=== PATIENT | male | born 1955 | race Caucasian/White ===

== ENCOUNTER 2024-04-06 12:18 | Emergency (ER) | payer MEDICARE, OTHER ==
--- NOTE | 2024-04-06 13:09 | ED ---
Trauma HPI - General Chief Complaint: Trauma Stated Complaint: R shoulder injury Time Seen by Provider: 04/06/24 13:02 Source: patient, RN notes reviewed, old records reviewed Mode of arrival: EMS Limitations: no limitations - History of Present Illness Initial Comments: This is a 68-year-old male who presents today for evaluation. Patient presents today for evaluation in regards to traumatic injury. Patient had a traumatic body went over him while doing some concrete work. Patient has severe pain of the right ankle right knee right shoulder. No loss of consciousness no other complaints MD Complaint: injury, pain -: days(s) Loss of Consciousness: yes Location: head, face Location - Extremities: Right: Thigh, Knee Severity scale (1-10): 7 Consistency: constant Associated Symptoms: denies other symptoms Treatments Prior to Arrival: other (0) - Related Data Previous Rx's Medication Instructions Recorded Cephalexin [Keflex] 500 mg PO Q6HR #40 cap 04/12/24 Allergies Allergy/AdvReac Type Severity Reaction Status Date / Time No Known Allergies Allergy Verified 04/12/24 12:19 Review of Systems ROS Statement: Those systems with pertinent positive or pertinent negative responses have been documented in the HPI. ROS Other: All systems not noted in ROS Statement are negative. Past Medical History Past Medical History: Deep Vein Thrombosis (DVT), Pulmonary Embolus (PE) History of Any Multi-Drug Resistant Organisms: None Reported Additional Past Surgical History / Comment(s): Atherectomy Past Psychological History: No Psychological Hx Reported Smoking Status: Former smoker Past Alcohol Use History: Occasional Past Drug Use History: None Reported General Exam General appearance: alert, in no apparent distress, anxious Head exam: Present: atraumatic, normocephalic, normal inspection Eye exam: Present: normal appearance, PERRL, EOMI. Absent: scleral icterus, conjunctival injection, periorbital swelling ENT exam: Present: normal exam, mucous membranes moist Neck exam: Present: normal inspection. Absent: tenderness, meningismus, lymphadenopathy Respiratory exam: Present: normal lung sounds bilaterally. Absent: respiratory distress, wheezes, rales, rhonchi, stridor Cardiovascular Exam: Present: regular rate, normal rhythm, normal heart sounds. Absent: systolic murmur, diastolic murmur, rubs, gallop, clicks GI/Abdominal exam: Present: soft, normal bowel sounds. Absent: distended, tenderness, guarding, rebound, rigid Extremities exam: Present: normal inspection, full ROM, normal capillary refill. Absent: tenderness, pedal edema, joint swelling, calf tenderness Back exam: Present: normal inspection Neurological exam: Present: alert, oriented X3, CN II-XII intact Psychiatric exam: Present: normal affect, normal mood Skin exam: Present: warm, dry, intact, normal color. 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 sent in by a medical professional or institution (, PA, MARKSMANSH[employer] INSTRUCTOR, urgent care, hospital, or longterm...) When possible be specific @ -no Did you speak to anyone other than the patient for history (EMS, parent, family, police, friend...)? What history was obtained from this source @ -no Did you review nursing and triage notes (agree or disagree)? Why? @ -agree Are old charts reviewed (outside hosp., previous admission, EMS record, old EKG, old radiological studies, urgent care reports/EKG's, longterm records)? Report findings @ -yes Differential Diagnosis (chest pain, altered mental status, abdominal pain women, abdominal pain men, vaginal bleeding, weakness, fever, dyspnea, syncope, headache, dizziness, GI bleed, back pain, seizure, CVA, palpatations, mental health, musculoskeletal)? @ -prior EKG interpreted by me (3pts min.). @ -no X-rays interpreted by me (1pt min.). @ -yes negative for acute disease CT interpreted by me (1pt min.). @ -no U/S interpreted by me (1pt. min.). @ -no What testing was considered but not performed or refused? (CT, X-rays, U/S, labs)? Why? @ -none What meds were considered but not given or refused? Why? @ -none Did you discuss the management of the patient with other professionals (professionals i.e. , PA, MARKSMANSHIP INSTRUCTOR, lab, RT, psych nurse, social media specialist, school commissioner, teacher, hazard mitigation officer, trimming caser)? Give summary @ -no Was smoking cessation discussed for >3mins.? @ -no Was critical care preformed (if so, how long)? @ -no Were there social determinants of health that impacted care today? How? (Homelessness, low income, unemployed, alcoholism, drug addiction, transportation, low edu. Level, literacy, decrease access to med. care, assisted, rehab)? @ -none Was there de-escalation of care discussed even if they declined (Discuss DNR or withdrawal of care, Hospice)? DNR status @ -no What co-morbidities impacted this encounter? (DM, HTN, Smoking, COPD, CAD, Cancer, CVA, ARF, Chemo, Hep., AIDS, mental health diagnosis, sleep apnea, morbid obesity)? @ -none Was patient admitted / discharged? Hospital course, mention meds given and route, prescriptions, significant lab abnormalities, going to OR and other pertinent info. @ - 68 male to ER for evaluation of a fall with shoulder pain leg pain back pain with no traumatic injury noted. Patient can be discharged home Discharge Undiagnosed new problem with uncertain prognosis? @ -no Drug Therapy requiring intensive monitoring for toxicity (Heparin, Nitro, Insulin, Cardizem)? @ -no Were any procedures done? @ -no Diagnosis/symptom? @ -Shoulder contusion back contusion ankle pain Acute, or Chronic, or Acute on Chronic? @ -Acute Uncomplicated (without systemic symptoms) or Complicated (systemic symptoms)? @ -Complicated Side effects of treatment? @ -no Exacerbation, Progression, or Severe Exacerbation? @ -exacerbation Poses a threat to life or bodily function? How? (Chest pain, [place], [place], pneumonia, PE, COPD, DKA, ARF, appy, cholecystitis, CVA, Diverticulitis, Homicidal, Suicidal, threat to staff... and all critical care pts) @ -no Medical Decision Making - Medical Decision Making 68 male to ER for evaluation of a fall with shoulder pain leg pain back pain with no traumatic injury noted. Patient can be discharged home - Radiology Data Radiology results: report reviewed (X-ray ankle chest shoulder pelvis negative for traumatic injury), image reviewed Disposition Clinical Impression: Contusion of right leg, Contusion of right shoulder, Fall Disposition: HOME SELF-CARE Instructions (If sedation given, give patient instructions): Shoulder Sprain (ED), Leg Pain (ED) Is patient prescribed a controlled substance at d/c from ED?: No Referrals: Nonstaff,Physician [Primary Care Provider] - 1-2 days Time of Disposition: 15:00
[2024-04-06] MEDS: SODIUM CHLORIDE 0.9% 1,000 ML IV STA (13:28)
[2024-04-06] MEDS: KETOROLAC 15 MG/ML 1 ML VIAL IVP STA (13:28)
[2024-04-06] MEDS: MORPHINE SULFATE 4 MG/ML SYRINGE IVP STA (13:29)
--- NOTE | 2024-04-06 14:08 | XR ---
EXAMINATION TYPE: XR ankle complete RT DATE OF EXAM: 04/06/2024 1:55 PM CLINICAL INDICATION:Male, 68 years old with history of fall; [facility] COMPARISON: None TECHNIQUE: XR ankle complete RT; ankle is imaged in frontal, lateral and oblique projections. FINDINGS: There is no evidence of acute osseous pathology. No evidence of subluxation or dislocation. Kager's fat pad is intact. No radiopaque foreign bodies are identified. Calcaneal plantar spurring is present . Multifocal degeneration changes throughout the joints of the foot with osteophyte formation and penelope nt space narrowing. IMPRESSION: 1. No evidence of acute fracture. 2. Multifocal degeneration changes of the joints of the foot.
--- NOTE | 2024-04-06 14:09 | XR ---
EXAMINATION TYPE: XR chest 2V DATE OF EXAM: 04/06/2024 1:55 PM CLINICAL INDICATION:Male, 68 years old with history of fall; [facility] COMPARISON: None TECHNIQUE: XR chest 2V Frontal and lateral views of the chest. FINDINGS: Lungs/Pleura: There is no evidence of pleural effusion, focal consolidation, or pneumothorax. Pulmonary vascularity: Unremarkable. Heart/mediastinum: Cardiomediastinal silhouette is unremarkable. Musculoskeletal: No acute osseous pathology. IMPRESSION: No acute cardiopulmonary disease/process.
--- NOTE | 2024-04-06 14:11 | XR ---
EXAMINATION TYPE: XR shoulder complete RT DATE OF EXAM: 04/06/2024 1:55 PM CLINICAL INDICATION:Male, 68 years old with history of fall; [facility] COMPARISON: None TECHNIQUE: XR shoulder complete RT; examined in AP, internally rotated and scapular Y projections. FINDINGS: No evidence of acute osseous pathology, joint dislocation, or soft tissue swelling. The remaining po rtions of the visualized chest are unremarkable. Mild degeneration changes of the acromion and dista l clavicle. IMPRESSION: 1. No acute osseous pathology. 2. Mild shoulder osteoarthrosis.
--- NOTE | 2024-04-06 14:12 | XR ---
EXAMINATION TYPE: XR pelvis AP view DATE OF EXAM: 04/06/2024 1:55 PM CLINICAL INDICATION:Male, 68 years old with history of fall; COMPARISON: None TECHNIQUE: The pelvis was examined in a single projection. FINDINGS: There is no evidence of fracture or dislocation. There is no soft tissue abnormality. No a bnormal calcifications are present. The spine appears intact. The hips appear intact. Osteophyte form ation of the superior acetabulum bilaterally with mild joint space narrowing. IMPRESSION: 1. No acute osseous pathology. 2. Mild degeneration changes of the hip.
[2024-04-06 15:10] VITALS: BP 198/98; PULSE 68; RESP 18; TEMP 97
[2024-04-06] MEDS: IBUPROFEN 600 MG STARTER PACK 4 TAB BTL PO STA (15:12)
[2024-04-06] MEDS: ACET/COD 300 MG/30 MG STARTER PACK 6 TAB BTL PO STA (15:13)
== END 2024-04-06 15:14 | disposition home or self-care (01) ==
LOC: EC 12:18
DX: S40.011A Contusion of right shoulder, initial encounter (principal); S80.11XA Contusion of right lower leg, initial encounter; Z87.891 Personal history of nicotine dependence; X50.0XXA Overexertion from strenuous movement or load, initial encounter
CPT/HCPCS: 72170; 73030; 73610; 71046; 99283; 96374; 96375; 96361; J2270; J1885

== ENCOUNTER 2024-04-12 12:09 | Emergency (ER) | payer MEDICARE, OTHER ==
[2024-04-12 12:18] VITALS: RESP 18
--- NOTE | 2024-04-12 12:25 | ED ---
Lower Extremity Injury HPI - General Source: patient, RN notes reviewed Mode of arrival: ambulatory Limitations: no limitations <Sue Mar - Last Filed: 04/12/24 12:24> <Angelique Watters - Last Filed: 04/12/24 17:23> - General Chief Complaint: Extremity Injury, Lower Stated Complaint: foot swelling Time Seen by Provider: 04/12/24 12:24 - History of Present Illness Initial Comments: Quick note: 68-year-old male presenting to the ER with a chief complaint of right calf injury. Patient was seen here 6 days prior with an injury to right calf. He is taking Eliquis. He reports since then he has been having calf tenderness and is concerned of infection. Past medical history significant of pulmonary embolism. (Sue Mar) Is a 68-year-old male with a history of DVT and PE on Eliquis who presents emergency department chief complaint of a injury to his right lower extremity. Patient states that she was outside completing yard work a few days ago when the had an injury to his right calf. Says that since this time his calf has been tender and is concerned for possible ear infection and blood clot. Patient denies fevers, nausea, vomiting, weakness, fatigue. States he has not been on antibiotics recently. (Angelique Watters) - Related Data Previous Rx's Medication Instructions Recorded Cephalexin [Keflex] 500 mg PO Q6HR #40 cap 04/12/24 Allergies Allergy/AdvReac Type Severity Reaction Status Date / Time No Known Allergies Allergy Verified 04/12/24 12:19 Review of Systems ROS Other: All systems not noted in ROS Statement are negative. <Sue Mar - Last Filed: 04/12/24 12:24> ROS Other: All systems not noted in ROS Statement are negative. <Angelique Watters - Last Filed: 04/12/24 17:23> ROS Statement: Those systems with pertinent positive or pertinent negative responses have been documented in the HPI. Past Medical History Past Medical History: Deep Vein Thrombosis (DVT), Pulmonary Embolus (PE) History of Any Multi-Drug Resistant Organisms: None Reported Additional Past Surgical History / Comment(s): Atherectomy Past Psychological History: No Psychological Hx Reported Smoking Status: Former smoker Past Alcohol Use History: Occasional Past Drug Use History: None Reported <Sue Mar - Last Filed: 04/12/24 12:24> General Exam Limitations: no limitations <Sue Mar - Last Filed: 04/12/24 12:24> General appearance: alert, in no apparent distress Head exam: Present: atraumatic, normocephalic, normal inspection Eye exam: Present: normal appearance, PERRL, EOMI. Absent: scleral icterus, conjunctival injection, periorbital swelling ENT exam: Present: normal exam, mucous membranes moist Neck exam: Present: normal inspection. Absent: tenderness, meningismus, lymphadenopathy Respiratory exam: Present: normal lung sounds bilaterally. Absent: respiratory distress, wheezes, rales, rhonchi, stridor Cardiovascular Exam: Present: regular rate, normal rhythm, normal heart sounds. Absent: systolic murmur, diastolic murmur, rubs, gallop, clicks GI/Abdominal exam: Present: soft, normal bowel sounds. Absent: distended, tenderness, guarding, rebound, rigid Right Lower Leg exam: Present: normal inspection, tenderness (anterior distal munoz with a 2 cm area of scabbing), laceration, ecchymosis. Absent: swelling, deformity, crepitus, dislocation, palpable cord, Homans' sign Back exam: Present: normal inspection Neurological exam: Present: alert, oriented X3, CN II-XII intact Psychiatric exam: Present: normal affect, normal mood Skin exam: Present: warm, dry, intact, normal color. Absent: rash <Angelique Watters - Last Filed: 04/12/24 17:23> - General Exam Comments Initial Comments: Visual Physical Exam Vital signs reviewed General: Well-appearing, nontoxic, no acute distress. Head: Normocephalic, atraumatic Eyes: PERRLA, EOMI ENT: Airway patent Chest: Nonlabored breathing Skin: No visual rash, normal skin tone, healing wound to right calf. No purulent drainage. Neuro: Alert and oriented 3 Musculoskeletal: No gross abnormalities (Sue Mar) Course Vital Signs 04/12/24 04/12/24 12:16 13:42 Temperature 98 F 97.9 F Pulse Rate 78 72 Respiratory 18 18 Rate Blood Pressure 177/82 156/84 O2 Sat by Pulse 98 98 Oximetry Medical Decision Making <Sue Mar - Last Filed: 04/12/24 12:24> <Angelique Watters - Last Filed: 04/12/24 17:23> - Medical Decision Making I performed the quick note portion of this chart. Electronically signed by Sue Mar PA-C (Sue Mar) Was pt. sent in by a medical professional or institution ([employer], [employer], urgent care, hospital, or prison...) When possible be specific @ -No Did you speak to anyone other than the patient for history (EMS, parent, family, police, friend...)? What history was obtained from this source @ -No Did you review nursing and triage notes (agree or disagree)? Why? @ -I reviewed and agree with nursing and triage notes Were old charts reviewed (outside hosp., previous admission, EMS record, old EKG, old radiological studies, urgent care reports/EKG's, prison records)? Report findings @ -No old charts were reviewed Differential Diagnosis (chest pain, altered mental status, abdominal pain women, abdominal pain men, vaginal bleeding, weakness, fever, dyspnea, syncope, headac he, dizziness, GI bleed, back pain, seizure, CVA, palpatations, mental health, musculoskeletal)? @ -DVT, superficial thrombophlebitis, cellulitis, skin infection, this list is not all inclusive. EKG interpreted by me (3pts min.). @ -None X-rays interpreted by me (1pt min.). @ -None done CT interpreted by me (1pt min.). @ -None done U/S interpreted by me (1pt. min.). @ -Duplex ultrasound of the right lower extremity reveals no evidence for DVT. What testing was considered but not performed or refused? (CT, X-rays, U/S, labs)? Why? @ -Labs such as CBC and CMP were considered but deferred at this time. On examination there is minimal clinical concern for cellulitis. Patient is in agreement this plan. What meds were considered but not given or refused? Why? @ - IM dose of Rocephin was considered but deferred. Patient will be provided with an outpatient prescription for antibiotics. Did you discuss the management of the patient with other professionals (professionals i.e. [employer], [employer], lab, RT, psych nurse, social media sr strategy manager, injection molding machine operator, teacher, training systems officer, spring encaser)? Give summary @ -No Was smoking cessation discussed for >3mins.? @ -No Was critical care preformed (if so, how long)? @ -No Were there social determinants of health that impacted care today? How? (Homelessness, low income, unemployed, alcoholism, drug addiction, transportation, low edu. Level, literacy, decrease access to med. care, [facility], rehab)? @ -No Was there de-escalation of care discussed even if they declined (Discuss DNR or withdrawal of care, Hospice)? DNR status @ -No What co-morbidities impacted this encounter? (DM, HTN, Smoking, COPD, CAD, Cancer, CVA, ARF, Chemo, Hep., AIDS, mental health diagnosis, sleep apnea, morbid obesity)? @ -None Was patient admitted / discharged? Hospital course, mention meds given and route, prescriptions, significant lab abnormalities, going to OR and other pertinent info. @ -Discharge. 68-year-old female with right lower extremity pain, erythema, and scaling. On examination there is mild edema and erythema. Patient is initially seen as a quick note and ultrasound was ordered. Duration of ultrasound negative for DVT. On my evaluation there is minimal clinical suspicion for infection at the emergency department. Due to mild erythema and pain of the right distal calf pain will be treated with oral antibiotics for cellulitis. Recommend the patient follows up with her primary care provider next week for reevaluation. All questions answered at bedside and strict return parameters discussed with the patient which is verbalized understanding. Case discussed with Undiagnosed new problem with uncertain prognosis? @ -No Drug Therapy requiring intensive monitoring for toxicity (Heparin, Nitro, Insulin, Cardizem)? @ -No Were any procedures done? @ -No Diagnosis/symptom? @ -cellulitis Acute, or Chronic, or Acute on Chronic? @ -Acute Uncomplicated (without systemic symptoms) or Complicated (systemic symptoms)? @ -uncomplicated Side effects of treatment? @ -No Exacerbation, Progression, or Severe Exacerbation? @ -No Poses a threat to life or bodily function? How? (Chest pain, [place], [place], pneumonia, PE, COPD, DKA, ARF, appy, cholecystitis, CVA, Diverticulitis, Homicidal, Suicidal, threat to staff... and all critical care pts) @ -No (Stieler,Angelique) Disposition <Sue Mar - Last Filed: 04/12/24 12:24> Is patient prescribed a controlled substance at d/c from ED?: No Time of Disposition: 13:23 <Angelique Watters - Last Filed: 04/12/24 17:23> Clinical Impression: Cellulitis, Injury of right lower extremity Disposition: HOME SELF-CARE Condition: Good Instructions (If sedation given, give patient instructions): Cellulitis (ED) Additional Instructions: Return to the emergency department if your symptoms worsen or not improve. Recommend follow-up with your primary care provider next week for further evaluation. Complete full course of antibiotics as prescribed. Prescriptions: Cephalexin [Keflex] 500 mg PO Q6HR #40 cap Referrals: Nonstaff,Physician [Primary Care Provider] - 1-2 days
--- NOTE | 2024-04-12 12:56 | US ---
EXAMINATION TYPE: US venous doppler duplex LE RT DATE OF EXAM: 04/12/2024 12:43 PM COMPARISON: NONE CLINICAL INDICATION: Male, 68 years old with history of pain; Hx of DVT and PE november 2023. Pt rd diego on eliquis SIDE PERFORMED: Right TECHNIQUE: The lower extremity deep venous system is examined utilizing real time linear array sonog gurpreet with graded compression, doppler sonography and color-flow sonography. VESSELS IMAGED: Common Femoral Vein Deep Femoral Vein Greater Saphenous Vein * Femoral Vein Popliteal Vein Small Saphenous Vein * Proximal Calf Veins (* superficial vessels) Right Leg: Negative for DVT IMPRESSION: Grayscale, color doppler, spectral doppler imaging performed of the deep veins of the lo wer extremities. There is normal flow, compressibility, vascular waveforms.
[2024-04-12 13:43] VITALS: BP 156/84; PULSE 72; TEMP 97.9
== END 2024-04-12 13:43 | disposition home or self-care (01) ==
LOC: EC 12:09
DX: M79.661 Pain in right lower leg (principal); S89.91XA Unspecified injury of right lower leg, initial encounter; Z87.891 Personal history of nicotine dependence; X58.XXXA Exposure to other specified factors, initial encounter
CPT/HCPCS: 99283

== ENCOUNTER → 2024-06-15 | Outpatient (CLI) | payer MEDICARE, OTHER | END | disposition home or self-care (01) | LOC: LABWHC1 12:36 | DX: N18.32 Chronic kidney disease, stage 3b (principal); N25.0 Renal osteodystrophy | CPT/HCPCS: 36415; 80069; 82306 ==